=== PATIENT | male | born 1965 | race Caucasian/White ===

== ENCOUNTER 2019-11-08 19:07 | Emergency (ER) | payer SELFPAY ==
[~2019-11-08] VITALS: Ht 182.9 cm; Wt 109.1 kg
[2019-11-08 19:16] VITALS: Ht 182.9 cm; Wt 109.1 kg
[2019-11-08] MEDS ORDERED: BACTRIM DS TAB1 EAC1 PO (19:17)
[2019-11-08] MEDS ORDERED: LISINOPRIL10 MG PO (19:18)
[2019-11-08] MEDS ORDERED: B/P MED (19:18)
[2019-11-08 20:00] LABS: BASOPHILS 0 % (0-2); HEMOGLOBIN 14.7 g/dL (13.5-17.5); IMMATURE GRANULOCYTES 0.4 % (0-5); LYMPHOCYTES 17.1 % (15-50); MCH 28.8 pg (26.0-34.0); MCHC 33.4 g/dL (31.0-37.0); MCV 86.3 fL (80.0-100.0); MEAN PLATELET VOLUME 9.3 fL (7.4-10.4); MONOCYTES 10.6 % (2-11); NEUTROPHILS 68.9 % (40-80); PLATELET COUNT 326 10x3/uL (130-400); RDW 12.9 % (11.5-14.5); WBC 11.4 10x3/uL (4.8-10.8)
[2019-11-08 20:08] LABS: ANION GAP 8.2 mmol/L (8-16); CALCIUM 8.9 mg/dL (8.5-10.1); CARBON DIOXIDE 27.6 mmol/L (21.0-32.0); CREATININE - SERUM 1.2 mg/dL (0.6-1.3); POTASSIUM - SERUM 3.8 mmol/L (3.5-5.1)
[2019-11-08 20:13] LABS: ALBUMIN 3.6 g/dL (3.4-5.0); BILIRUBIN - TOTAL 0.29 mg/dL (0.2-1.3); PROTEIN - SERUM 7.3 g/dL (6.4-8.2)
[2019-11-08] MEDS ORDERED: CLEOCIN HCL300 MG PO (21:05)
[2019-11-08] MEDS ORDERED: KEFLEX500 MG PO (21:05)
[2019-11-08 23:23] VITALS: BP 126/85
== END 2019-11-08 23:24 | disposition home or self-care (01) ==
LOC: D.ER 19:07
PROVIDERS: Emergency Medicine
DX: L03.116 Cellulitis of left lower limb (principal); R73.9 Hyperglycemia, unspecified; I10 Essential (primary) hypertension; D72.829 Elevated white blood cell count, unspecified